=== PATIENT | female | born 1955 | race Caucasian/White ===

== ENCOUNTER 2021-10-08 09:58 | Outpatient (REF) | payer MEDICARE, SELFPAY ==
[2021-10-08 11:31] LABS: Hematocrit 43.8 % (37.0-47.0); Hemoglobin 14.6 g/dl (12.0-16.0); Mean Corpuscular HGB Conc 33.3 g/dl (31.0-35.0); Mean Corpuscular Hemoglobin 31.3 pg (27.0-33.0); Platelet Count 237 X10*3/uL (160-400); Red Blood Count 4.66 X10*6/uL (4.20-5.50); Red Cell Distribution Width 11.9 % (11.0-16.0)
[2021-10-08 11:55] LABS: Vitamin D 25-OH Total 34.9 ng/mL (>30)
[2021-10-08 12:05] LABS: Alanine Aminotransferase 12 U/L (0-31); Albumin Level 3.9 g/dL (3.5-5.0); Alkaline Phosphatase 92 U/L (39-117); Anion Gap 15 (12-20); Aspartate Amino Transferase 16 U/L (5-31); Bilirubin Total 1.2 mg/dL (0.0-1.0); Blood Urea Nitrogen 16 mg/dL (9-16); Calcium 9.2 mg/dL (8.4-10.2); Carbon Dioxide 23 mmol/L (22-29); Chloride 102 mmol/L (96-108); Cholesterol 209 mg/dL; Estimated Glomerular Filt Rate > 60; Glucose Fasting 101 mg/dL (60-99); HDL Cholesterol 59 mg/dL; LDL Cholesterol Calculated 116 mg/dl; Potassium 4.8 mmol/L (3.3-5.1); Sodium 135 mmol/L (135-145); Total Protein 7.3 g/dL (6.5-8.0); Triglycerides 174 mg/dL
== END 2021-10-08 09:59 | disposition home or self-care (01) ==
LOC: HO.HMGCLDS 09:58
PROVIDERS: Visit Provider Internal Medicine
DX: E78.5 Hyperlipidemia, unspecified (principal); I10 Essential (primary) hypertension
CPT/HCPCS: 36415; 80053; 80061; 82306; 84443; 85027

== ENCOUNTER 2022-11-26 10:04 | Outpatient (REF) | payer MEDICARE, SELFPAY ==
[2022-11-26 11:34] LABS: MANUAL DIFF FLAG NO
[2022-11-26 11:35] LABS: Basophils Absolute Auto 0.1 X10*3/uL (0.0-0.2); Basophils Percent Auto 0.9 % (0-2); Eosinophils Absolute Auto 0.2 X10*3/uL (0.0-0.4); Eosinophils Percent Auto 2.4 % (0-4); Hematocrit 41.7 % (37.0-47.0); Hemoglobin 14.1 g/dl (12.0-16.0); Imm Gran Abs Auto 0.03 X10*3/uL (0.00-0.03); Imm Gran Pct Auto 0.5 % (0.0-0.4); Lymphocytes Percent Auto 32.1 % (20-40); Mean Corpuscular HGB Conc 33.8 g/dl (31.0-35.0); Mean Corpuscular Hemoglobin 31.8 pg (27.0-33.0); Mean Corpuscular Volume 93.9 fL (80.0-98.0); Mean Platelet Volume 11.3 fL (9.4-12.3); Monocytes Absolute Auto 0.4 X10*3/uL (0.1-1.2); Monocytes Percent Auto 6.1 % (2-11); Neutrophils Absolute Auto 3.7 x10*3/uL (2.0-8.3); Platelet Count 275 X10*3/uL (160-400); Red Blood Count 4.44 X10*6/uL (4.20-5.50); Red Cell Distribution Width 11.9 % (11.0-16.0); White Blood Count 6.4 X10*3/uL (4.8-10.8)
[2022-11-26 12:17] LABS: Alanine Aminotransferase 14 U/L (0-31); Albumin Level 4.1 g/dL (3.5-5.0); Alkaline Phosphatase 82 U/L (39-117); Anion Gap 12 (12-20); Aspartate Amino Transferase 19 U/L (5-31); Bilirubin Total 1.5 mg/dL (0.0-1.0); Blood Urea Nitrogen 14 mg/dL (9-16); Calcium 9.5 mg/dL (8.4-10.2); Carbon Dioxide 25 mmol/L (22-29); Chloride 103 mmol/L (96-108); Cholesterol 210 mg/dL; Estimated Glomerular Filt Rate 54; Glucose Fasting 104 mg/dL (60-99); HDL Cholesterol 61 mg/dL; LDL Cholesterol Calculated 121 mg/dl; Potassium 4.1 mmol/L (3.3-5.1); Sodium 136 mmol/L (135-145); Total Protein 7.4 g/dL (6.5-8.0); Triglycerides 143 mg/dL
[2022-11-26 12:33] LABS: TSH reflex Free T4 3.11 uIU/mL (0.32-4.0)
== END 2022-11-26 10:05 | disposition home or self-care (01) ==
LOC: HO.HMGCLDS 10:04
PROVIDERS: PCP Internal Medicine; Visit Provider Internal Medicine
DX: Z00.00 Encounter for general adult medical examination without abnormal findings (principal); I10 Essential (primary) hypertension; E78.5 Hyperlipidemia, unspecified
CPT/HCPCS: 36415; 80053; 80061; 83735; 84443; 85025

== ENCOUNTER 2023-01-18 10:23 | Outpatient (AMB) | payer MEDICARE, SELFPAY ==
--- NOTE | 2023-01-18 10:25 | A.OFFVIS_ITS ---
Intake Vital Signs 01/18/23 10:26 Height 5 ft 6.5 in Weight 198 lb BMI 31.5 BP 136/80 Blood Pressure Location Lt brachial Position Sitting Pulse 63 Pulse Source Pulse Oximeter Pulse Oximetry (%) 98 Oxygen Delivery Method Room Air Intake Visit Reasons: Hypertension Allergies latex Allergy (Mild, Verified 01/18/23 10:26) Rash sertraline [Zoloft] Allergy (Unknown, Verified 01/18/23 10:26) could not move Medication List - Last Reconciled 01/18/23 by Katalina Barclay MD conjugated estrogens (Premarin) 0.625 mg PO DAILY hydrochlorothiazide 12.5 mg PO DAILY irbesartan 150 mg PO DAILY levothyroxine 75 mcg PO QAM medroxyprogesterone (Provera) 2.5 mg PO DAILY metoprolol succinate ER 50 mg PO DAILY HPI Hypertension HPI Details Pt presents for f/u HTN and hypothyroid, stable on meds. Patient reports episodes of her equilibrium feeling of on and off for few years. Patient denies any weakness or numbness in extremities change in vision. [facility] Medical History Annual physical exam Colonoscopy refused Cyst, breast HTN (hypertension) Hx of screening mammography Hyperlipidemia IBS (irritable bowel syndrome) Normal pelvic exam Surgical History Hx of cholecystectomy Family History Father Substance use disorder Mother Mental health disorder Substance use disorder Social History Housing: House Patient Tobacco Use Status: Never used Tobacco Current occupational status: retired Cognitive needs: No Hearing needs: No Vision needs: Yes Review of Systems Const All systems reviewed & are unremarkable except as noted in HPI and below Reports no additional complaints Eyes Reports no additional complaints ENT Reports no additional complaints Card Reports no additional complaints Resp Reports no additional complaints GI Reports no additional complaints Physical Exam Vital Signs: Last Vital Signs Pulse 63 01/18/23 10:26 BP 136/80 01/18/23 10:26 Pulse Ox 98 01/18/23 10:26 Oxygen Delivery Method Room Air 01/18/23 10:26 BMI result Body Mass Index 31.5 Const General: no acute distress HEENT Head: Yes normal to inspection Ears: hearing grossly normal bilaterally General nose exam: Normal external nose present Eyes General: appearance normal, both eyes and all related structures Visual Bo: normal visual bo by confrontation Neck Neck: Yes no lymphadenopathy and Yes supple Resp Effort & Inspection: normal respiratory effort Auscultation: clear to auscultation bilaterally Cardio Rhythm: regular rhythm Heart sounds: S1 normal heart sound present and S2 normal heart sound present GI Inspection: Yes normal to inspection Palpation (GI): Soft to palpation Neuro General: CN's II-XI intact bilaterally Gait exam (Neuro): Normal gait present Motor exam (neuro): 5/5 motor strength present throughout Romberg Test: Negative Assessment & Plan Assessment & Plan (1) Hx of screening mammography: Comment: 06/09, 05/2022 Code(s): Z92.89 - Personal history of other medical treatment (2) Colonoscopy refused: Comment: 10/09, negatove Cologuard 2021 Code(s): Z53.20 - Procedure and treatment not carried out because of patient's decision for unspecified reasons (3) Hyperlipidemia: Code(s): E78.5 - Hyperlipidemia, unspecified Plan: Continue low-cholesterol diet (4) HTN (hypertension): Code(s): I10 - Essential (primary) hypertension Plan: Continue current medications, return in 6 months Orders: Orders CA echo transthoracic complete Today R01.1 - Cardiac murmur, unspecified Coding Level of Care Code Est Pt Level 4 (62907) Diagnoses Hx of screening mammography Z92.89 Colonoscopy refused Z53.20 Hyperlipidemia E78.5 HTN (hypertension) I10
[2023-01-18 10:26] VITALS: BP 136/80; PULSE 63; O2SAT 98; BMI 31.5
== END 2023-01-18 11:40 | disposition home or self-care (01) ==
LOC: HO.HMGC 10:23
PROVIDERS: PCP Internal Medicine; Visit Provider Internal Medicine
DX: Z92.89 Personal history of other medical treatment (principal); Z53.20 Procedure and treatment not carried out because of patient's decision for unspecified reasons; E78.5 Hyperlipidemia, unspecified; I10 Essential (primary) hypertension
CPT/HCPCS: 99214

== ENCOUNTER 2023-07-19 08:20 | Outpatient (AMB) | payer MEDICARE, SELFPAY ==
[2023-07-19 08:25] VITALS: BP 114/66; PULSE 61; O2SAT 97; BMI 33.1
--- NOTE | 2023-07-19 08:25 | AM.OFFVISMDC ---
Intake Vital Signs 07/19/23 08:25 Height 5 ft 6.5 in Weight 208 lb BMI 33.1 BP 114/66 Blood Pressure Location Lt brachial Position Sitting Pulse 61 Pulse Source Pulse Oximeter Pulse Oximetry (%) 97 Oxygen Delivery Method Room Air Intake Visit Reasons: [facility] G0439 Allergies latex Allergy (Mild, Verified 07/19/23 08:46) Rash sertraline [Zoloft] Allergy (Unknown, Verified 07/19/23 08:46) could not move Medication List - Last Reconciled 07/19/23 by Katalina Barclay MD conjugated estrogens (Premarin) 0.625 mg PO DAILY hydrochlorothiazide 12.5 mg PO DAILY irbesartan 150 mg PO DAILY levothyroxine 75 mcg PO QAM medroxyprogesterone (Provera) 2.5 mg PO DAILY metoprolol succinate ER 50 mg PO DAILY HPI [facility] G0439 HPI Details Initiated the conversation about Advanced Directives. Advanced Directives help? patients prepare for current and future decisions about their medical treatment? and place of care. Discussed with patient that it is a process where a patients? current condition and prognosis are reviewed, their wishes for information? regarding their illness are elicited, and likely medical dilemmas are presented? and options discussed. The form can be amended as needed, reviewed yearly and? make changes as needed IPPE/AWV ? year old presents? for her ? Annual? Wellness Visit, initial visit.? Medical / Social History Reviewed? Past Medical History ?Yes? . ? [place]? of Care / Care Team list updated ?Yes . ? Surgical/Hospitalization? History ?Yes . ? Current Medications? (including OTC and supplements) ?Yes . ? Family History ?Yes? . ? Tobacco? Control form ?Yes . ? AUDIT-C (Alcohol use) form? ?Yes . ? Illicit drug use in Social? History ?Yes . ? Current diagnosis of? depression? ?No ? Appropriate PHQ2/PHQ9? completed ?Yes . ? Data entered by ?Medical? [employer] and reviewed by provider ? Fall Risk ? Fall? History? Have you had any falls with? injury in the past year? ?No . ? Have you had two or more? falls in the past year? ?No . ? Fall Risk Assessment: ?No? falls in the past year . ? HRA filled out by? the patient, reviewed by Provider and scanned. ? IPPE/AWV ? Balance? Romberg? ?Yes . ? Tandem? walk ?Yes . ? Walk and? Turn ?Yes . ? Rise from? sit to stand ?Yes . ?Vision? Corrective? lens ?Yes ? Vision? screen ? Up-to-date, has an appointment [] for vision? screening and glaucoma screening ?Hearing? Whisper? test ?pass .? Initiated the conversation about Advanced Directives. Advanced Directives help? patients prepare for current and future decisions about their medical treatment? and place of care. Discussed with patient that it is a process where a patients? current condition and prognosis are reviewed, their wishes for information? regarding their illness are elicited, and likely medical dilemmas are presented? and options discussed. The form can be amended as needed, reviewed yearly and? make changes as needed Written? Plan?Completed. See Patient? Documents. [facility] Medical History (Updated 07/19/23 @ 09:45 by Katalina Barclay MD) Normal pelvic exam Hx of screening mammography Colonoscopy refused Annual physical exam Hyperlipidemia HTN (hypertension) IBS (irritable bowel syndrome) Cyst, breast Surgical History Hx of cholecystectomy Family History Father Substance use disorder Mother Mental health disorder Substance use disorder Social History Housing: House Patient Tobacco Use Status: Never used Tobacco Current occupational status: retired Cognitive needs: No Hearing needs: No Vision needs: Yes Questionnaire Medicare Wellness Checkup [age] What gender do you identify with?: female During the past 4 weeks, how much have you been bothered by emotional problems such as feeling anxious, depressed, irritable, sad or downhearted, and blue?: not at all During the past 4 weeks, has your physical & emotional health limited your social activities with family, friends, neighbors, or groups?: not at all During the past 4 weeks, how much bodily pain have you generally had?: very mild pain During the past 4 weeks, was someone available to help you if you needed & wanted help?: yes, as much as I wanted During the past 4 weeks, what was the hardest physical activity you could do for at least 2 minutes?: moderate Can you get to places out of walking distance without help? (For eg., can you travel alone on buses, taxis or drive your car?): Yes Can you go shopping for groceries or clothes without someone's help?: Yes Can you prepare your own meals?: Yes Can you do your housework without help?: Yes Because of any health problems, do you need the help of another person with your personal care needs such as eating, bathing, dressing or getting around the house?: No Can you handle your own money without help?: Yes During the past 4 weeks, how would you rate your health in general?: very good During the past 4 weeks how have things been going for you?: very well; could hardly better Are you having difficulties driving your car?: no Do you always fasten your seat belt when you are in a car?: yes, usually During past 4 weeks, have you been bothered by the following: never: Falling or dizzy when standing up, Sexual problems?, Trouble eating well?, Teeth or denture problems? and Problems using the telephone? and seldom: Tiredness or fatigue? Have you fallen 2 or more times in the past year?: No Are you afraid of falling?: No Are you a smoker?: no During the past 4 weeks, how many drinks of wine, beer, or other alcoholic beverages did you have?: 1 drink or less per week Do you exercise for about 20 minutes 3 or more times a week?: no, I usually do not exercise this much Have you been given information to help with the following?: no: Hazards in your house that might hurt you? and no: Keeping track of your medications? How often do you have trouble taking medicines the way you have been told to take them?: I always take medicine as prescribed How confident are you that you can control & manage most of your health problems?: very confident What is your race?: White Mini Mental State Exam (MMSE) Orientation What is the (year) (season) (date) (day) (month)?: year, season, date, day and month Where are we (state) (county) (town or city) (hospital) (floor)?: state, county, town or city, hospital/clinic and floor Registration Name of 3 unrelated objects clearly and slowly, then ask patient to repeat all 3 of them. (1st repeat determines score. Make sure they can repeat all three): object 1, object 2 and object 3 Attention & Calculation (CHOOSE ONE) Spell WORLD backwards (DLROW): 5 letters Recall Ask patient to repeat the 3 items from question #3.: object 1, object 2 and object 3 Language Show patient a wristwatch & ask what it is. Repeat for pencil.: watch and pencil Ask the patient to repeat the phrase 'No ifs, ands, or buts' after you.: correct Ask the patient to 'take a piece of paper with their right hand' 'fold paper in half' 'place paper on floor': take paper in right hand, fold paper in half and place paper on floor Print the sentence 'CLOSE YOUR EYES' on a piece. If patient actually closes eyes then score.: followed written direction Give patient a blank piece of paper & ask to write a sentence. Score if it contains a noun & verb.: sentence contains subject and verb Score Score: 29 Activity of Daily Living Bathing - sponge bath, tub bath or shower: receives no assistance (gets in/out by self, if usual bathing means Dressing - getting clothes from closets & drawers, including inner/outer garments & fasteners.: gets clothes & gets completely dressed without help Toileting - going to the 'toilet room' for urine/bowel elimination & cleaning self/arranging clothes: goes to toilet room, cleans self, arranges clothes without help Transfer: moves in & out of bed and chair without help (may use support object) Continence: controls urination/bowel movements completely by self Feeding: feeds self without help Total Score: 0 Information obtained from: patient Using telephone: independent Traveling: independent Shopping: independent Preparing meals: independent Housework: independent Taking medicine: independent Managing money: independent Review of Systems Const All systems reviewed & are unremarkable except as noted in HPI and below Reports no additional complaints Eyes Reports no additional complaints ENT Reports no additional complaints Card Reports no additional complaints Resp Reports no additional complaints GI Reports no additional complaints Reports no additional complaints Physical Exam Vital Signs: Last Vital Signs Pulse 61 07/19/23 08:25 BP 114/66 07/19/23 08:25 Pulse Ox 97 07/19/23 08:25 Oxygen Delivery Method Room Air 07/19/23 08:25 BMI result Body Mass Index 33.1 Const General: no acute distress HEENT Head: Yes normal to inspection Ears: hearing grossly normal bilaterally Neck Neck: Yes no lymphadenopathy and Yes supple Resp Effort & Inspection: normal respiratory effort Auscultation: clear to auscultation bilaterally Cardio Rhythm: regular rhythm Heart sounds: S1 normal heart sound present and S2 normal heart sound present GI Inspection: Yes normal to inspection Palpation (GI): Soft to palpation Percussion: Yes normal to percussion Auscultation: normal bowel sounds Extrem General: Yes no clubbing, cyanosis or edema Assessment & Plan Assessment & Plan (1) Annual physical exam: Code(s): Z00.00 - Encounter for general adult medical examination without abnormal findings Plan: WELL-BALANCED DIET REGULAR PHYSICAL ACTIVITY DISCUSSED WITH THE PATIENT. Patient was advised to taper down Premarin because of increased risk breast CA,DC and CVA. Patient tried to taper down the dose but developed difficulties with short-term memory. She follows up with [facility] for pelvic exam patient is up-to-date with a mammogram she had negative Cologuard in 2021. Patient declined DEXA (2) Hyperlipidemia: Code(s): E78.5 - Hyperlipidemia, unspecified Plan: Continue low-cholesterol diet (3) HTN (hypertension): Code(s): I10 - Essential (primary) hypertension Plan: Continue current medications (4) Heart murmur: Comment: nl ECHO 04/11 Code(s): R01.1 - Cardiac murmur, unspecified Plan: nl Echo Orders: Orders Comprehensive [place]. Panel Fast Today E78.5 - Hyperlipidemia, unspecified, I10 - Essential (primary) hypertension, Z00.00 - Encounter for general adult medical examination without abnormal findings TSH reflex Free T4 Today E78.5 - Hyperlipidemia, unspecified, I10 - Essential (primary) hypertension, Z00.00 - Encounter for general adult medical examination without abnormal findings Medications: Refilled levothyroxine 75 mcg PO QAM 90 tabs 3RF hydrochlorothiazide 12.5 mg PO DAILY 90 tabs 1RF irbesartan 150 mg PO DAILY 90 tabs 3RF metoprolol succinate ER 50 mg PO DAILY 90 tabs 3RF Coding Level of Care Code Medicare Subsequent (G0439) Diagnoses Annual physical exam Z00.00 Hyperlipidemia E78.5 HTN (hypertension) I10 Heart murmur R01.1 CPT Codes Advance Care Planning - Time spent: 1-15 minutes, not on file ([id number]) Advance Care Planning Advance Care Planning discussion: Exists, not on file Forms completed: Health Care Proxy Time spent: 1-15 minutes, not on file
== END 2023-07-19 09:48 | disposition home or self-care (01) ==
PROVIDERS: PCP Internal Medicine; Visit Provider Internal Medicine
DX: Z00.00 Encounter for general adult medical examination without abnormal findings (principal); E78.5 Hyperlipidemia, unspecified; I10 Essential (primary) hypertension; R01.1 Cardiac murmur, unspecified
CPT/HCPCS: 1124F; G0439

== ENCOUNTER 2023-07-19 09:29 | Outpatient (REF) | payer MEDICARE, SELFPAY ==
[2023-07-19 11:03] LABS: Alanine Aminotransferase 14 U/L (0-31); Albumin Level 3.8 g/dL (3.5-5.0); Alkaline Phosphatase 91 U/L (39-117); Anion Gap 10 (12-20); Aspartate Amino Transferase 18 U/L (5-31); Blood Urea Nitrogen 14 mg/dL (9-16); Calcium 9.2 mg/dL (8.4-10.2); Carbon Dioxide 26 mmol/L (22-29); Chloride 104 mmol/L (96-108); Estimated Glomerular Filt Rate 60; Glucose Fasting 100 mg/dL (60-99); Sodium 136 mmol/L (135-145); Total Protein 7.2 g/dL (6.5-8.0)
[2023-07-19 11:21] LABS: TSH reflex Free T4 3.17 uIU/mL (0.32-4.0)
== END 2023-07-19 09:30 | disposition home or self-care (01) ==
LOC: HO.HMGCLDS 09:29
PROVIDERS: PCP Internal Medicine; Visit Provider Internal Medicine
DX: Z00.00 Encounter for general adult medical examination without abnormal findings (principal); E78.5 Hyperlipidemia, unspecified; I10 Essential (primary) hypertension
CPT/HCPCS: 36415; 80053; 84443

== ENCOUNTER 2024-04-17 13:57 | Outpatient (AMB) | payer MEDICARE, SELFPAY ==
[2024-04-17 14:00] VITALS: BP 118/70; PULSE 67; O2SAT 97; BMI 34.2
--- NOTE | 2024-04-17 14:00 | A.OFFPC_ITS ---
Vital Signs 04/17/24 14:00 Height 5 ft 6.5 in Weight 215 lb BMI 34.2 BP 118/70 Blood Pressure Location Lt brachial Position Sitting Pulse 67 Pulse Source Pulse Oximeter Pulse Oximetry (%) 97 Oxygen Delivery Method Room Air Intake Visit Reasons: Pre op cataract surgery on 05/02/24 Dr. Menchaca Intake Note: Pt is here today for a pre op visit. Pt is having cataract surgery on 05/02/[address] Menchaca. Allergies latex Allergy (Mild, Verified 04/17/24 14:12) Rash sertraline [Zoloft] Allergy (Unknown, Verified 04/17/24 14:12) could not move Medication List - Last Reconciled 04/17/24 by Katalina Barclay MD conjugated estrogens (Premarin) 0.625 mg PO DAILY hydrochlorothiazide 12.5 mg PO DAILY irbesartan 150 mg PO DAILY levothyroxine 75 mcg PO QAM medroxyprogesterone (Provera) 2.5 mg PO DAILY metoprolol succinate ER 50 mg PO DAILY Tobacco use date assessed: 04/17/24 Fall risk assessment: No Falls in past year Last assessed Fall Risk: 04/17/24 Dental Screening Dental Screen Date: 04/17/24 Did you have a dental visit in the last 12 months?: Yes Did you have a dental problem in the last 6 months where you did not have access to dental care?: No Was dental information given to patient?: Patient has dentist HPI Pre op cataract surgery on 05/02/24 Dr. Menchaca HPI Details Pt presents for preop for cataract surgery. hypertension and hypothyroidism are controlled on current medications. [facility] Medical History Annual physical exam Colonoscopy refused Cyst, breast HTN (hypertension) Hx of screening mammography Hyperlipidemia IBS (irritable bowel syndrome) Normal pelvic exam Surgical History Hx of cholecystectomy Family History Father Substance use disorder Mother Mental health disorder Substance use disorder Social History Housing: House Patient Tobacco Use Status: Never used Tobacco service: No Current occupational status: retired Cognitive needs: No Hearing needs: No Vision needs: Yes Questionnaire PHQ-9 Over the last 2 weeks, how often have you been bothered by any of the following problems? 1. Little interest or pleasure in doing things: not at all 2. Feeling down, depressed, or hopeless: not at all 3. Trouble falling or staying asleep, or sleeping too much: not at all 4. Feeling tired or having little energy: not at all 5. Poor appetite or overeating: not at all 6. Feeling bad about yourself - or that you are a failure or have let yourself or your family down: not at all 7. Trouble concentrating on things, such as reading the newspaper or watching television: not at all 8. Moving or speaking so slowly that other people could have noticed. Or the opposite - being so fidgety or restless that you have been moving around a lot more than usual: not at all 9. Thoughts that you would be better off or of hurting yourself in some way: not at all Total score: 0 Depression Screening Interpretation: Negative Depression Screening Done: Yes 47342 - PHQ-9 Billing: Yes Source: Developed by Drs. Milan Wang, Jade Dodson, Edson Munson and colleagues, with an educational michael from [employer]. Thrive Questionnaire Date Thrive assessed: 04/17/24 I am a: Patient What is your living situation today?: I have a steady place to live Within the past 12 months, did the food you bought not last and you didn't have the money to get more?: Never true Within the past 12 months, did you worry whether your food would run out before you got money to buy more?: Never true Do you have trouble paying for medicines?: No Do you have trouble getting transportation to medical appointments?: No Do you have trouble paying your heating and electricity bill?: No Do you have trouble taking care of your child, family member or friend?: No Do you have trouble with day-to-day activities such as bathing, preparing meals, shopping, managing finances, etc.?: No Are you currently unemployed and looking for a job?: No Are you interested in more education?: No Please select the resources that you would like help with: None Currently or been in a relationship where the following occur: No concerns reported THRIVE Score: 0 AUDIT C Alcohol Use Questionnaire (AUDIT-C) 1. How often do you have a drink containing alcohol?: 2-4 times a month 2. How many drinks containing alcohol do you have on a typical day when you are drinking?: 1 or 2 3. How often do you have six or more drinks on one occasion?: Never Total Score: 2 MARY-7 AMB Questionnaire MARY-7 Date MARY - 7 assessed: 04/17/24 Feeling nervous, anxious, or on edge: 0 = Not at all Not being able to stop or control worryin = Not at all Worrying too much about different things: 0 = Not at all Trouble relaxin = Not at all Being so restless that it is hard to sit still: 0 = Not at all Becoming easily annoyed or irritable: 0 = Not at all Feeling afraid as if something awful might happen: 0 = Not at all Total MARY-7 score (0-4 normal; 5-9 mild; 10-14 moderate; 15-21 severe): 0 Source: Developed by Drs. Milan Wang, Jade Dodson, Edson Munson and colleagues, with an educational michael from [employer]. MARY-7 Assessment Billing MARY-7 Assessment Tool: MARY-7 Assessment 35977 Review of Systems Const All systems reviewed & are unremarkable except as noted in HPI and below ENT Reports no additional complaints Card Reports no additional complaints Resp Reports no additional complaints GI Reports no additional complaints Reports no additional complaints Physical exam (Primary Care) Vital Signs: Last Vital Signs Pulse 67 04/17/24 14:00 BP 118/70 04/17/24 14:00 Pulse Ox 97 04/17/24 14:00 Oxygen Delivery Method Room Air 04/17/24 14:00 BMI result Body Mass Index 34.2 Tobacco/Smoking Status: Tobacco use Status Tobacco use date assessed 04/17/24 04/17/24 14:14 Patient Tobacco Use Status Never used Tobacco 04/17/24 14:00 PHQ-9: PHQ-9 Score PHQ-9: Total score 0 04/17/24 14:14 Depression Screening Interpretation: Negative Thrive Assessment: Date of Thrive Assessment Date Thrive assessed 04/17/24 04/17/24 14:14 Currently or been in a relationship where the following occur: No concerns reported Const General: no acute distress HENMT Face and sinus: Yes normal facial exam Eyes General: appearance normal, both eyes and all related structures Neck Neck: Yes supple Resp Effort & Inspection: normal respiratory effort Auscultation: clear to auscultation bilaterally Cardio Rhythm: regular rhythm Heart sounds: S1 normal heart sound present and S2 normal heart sound present GI Inspection: Yes normal to inspection Palpation (GI): Soft to palpation Coding Level of Care Code Est Pt Level 4 (97866) Diagnoses HTN (hypertension) I10 Hyperlipidemia E78.5 Annual physical exam Z00.00 Vitamin D deficiency E55.9 Cataract H26.9 Additional Codes MARY-7 Assessment Billing - MARY-7 Assessment Tool: MARY-7 Assessment [id number] ([id number]) Assessment & Plan Assessment & Plan (1) HTN (hypertension): Code(s): I10 - Essential (primary) hypertension Category: Medical Plan: Continue current medications (2) Hyperlipidemia: Code(s): E78.5 - Hyperlipidemia, unspecified Category: Medical Plan: Continue low-cholesterol diet (3) Annual physical exam: Code(s): Z00.00 - Encounter for general adult medical examination without abnormal findings Category: Medical Plan: Return for physical in 3 months (4) Vitamin D deficiency: Code(s): E55.9 - Vitamin D deficiency, unspecified Category: Medical Plan: Continue vitamin-D supplement (5) Cataract: Code(s): H26.9 - Unspecified cataract Category: Medical Plan: Patient is medically cleared for cataract surgery Orders: Orders Lipid Panel 3 Months E55.9 - Vitamin D deficiency, unspecified, E78.5 - Hyperlipidemia, unspecified, I10 - Essential (primary) hypertension, Z00.00 - Encounter for general adult medical examination without abnormal findings TSH reflex Free T4 3 Months E55.9 - Vitamin D deficiency, unspecified, E78.5 - Hyperlipidemia, unspecified, I10 - Essential (primary) hypertension, Z00.00 - Encounter for general adult medical examination without abnormal findings Complete Blood Count Auto Diff 3 Months E55.9 - Vitamin D deficiency, unspecified, E78.5 - Hyperlipidemia, unspecified, I10 - Essential (primary) hypertension, Z00.00 - Encounter for general adult medical examination without abnormal findings Vitamin D 25-OH Total 3 Months E55.9 - Vitamin D deficiency, unspecified, E78.5 - Hyperlipidemia, unspecified, I10 - Essential (primary) hypertension, Z00.00 - Encounter for general adult medical examination without abnormal findings Comprehensive [place]. Panel Fast 3 Months E55.9 - Vitamin D deficiency, unspecified, E78.5 - Hyperlipidemia, unspecified, I10 - Essential (primary) hypertension, Z00.00 - Encounter for general adult medical examination without abnormal findings
== END 2024-04-17 14:40 | disposition home or self-care (01) ==
LOC: HO.HMCC 13:58
PROVIDERS: PCP Internal Medicine; Visit Provider Internal Medicine
DX: I10 Essential (primary) hypertension (principal); E78.5 Hyperlipidemia, unspecified; Z00.00 Encounter for general adult medical examination without abnormal findings; E55.9 Vitamin D deficiency, unspecified; H26.9 Unspecified cataract

== ENCOUNTER → 2024-04-17 13:57 | Outpatient (BNVA) | payer MEDICARE, SELFPAY | PROVIDERS: PCP Internal Medicine; Visit Provider Internal Medicine | DX: Z01.818 Encounter for other preprocedural examination (principal); H26.9 Unspecified cataract; I10 Essential (primary) hypertension; E78.5 Hyperlipidemia, unspecified; E55.9 Vitamin D deficiency, unspecified | CPT/HCPCS: 96127; 99212 ==

== ENCOUNTER 2024-09-13 09:16 | Outpatient (REF) | payer MEDICARE, SELFPAY ==
[2024-09-13 10:00] LABS: MANUAL DIFF FLAG NO
[2024-09-13 10:04] LABS: Basophils Absolute Auto 0.1 X10*3/uL (0.0-0.2); Eosinophils Absolute Auto 0.2 X10*3/uL (0.0-0.4); Eosinophils Percent Auto 3.1 % (0-4); Hematocrit 40.7 % (37.0-47.0); Hemoglobin 14.1 g/dl (12.0-16.0); Imm Gran Abs Auto 0.03 X10*3/uL (0.00-0.03); Imm Gran Pct Auto 0.4 % (0.0-0.4); Lymphocytes Absolute Auto 2.1 X10*3/uL (1.2-4.9); Lymphocytes Percent Auto 29.6 % (20-40); Mean Corpuscular HGB Conc 34.6 g/dl (31.0-35.0); Mean Corpuscular Volume 92.5 fL (80.0-98.0); Mean Platelet Volume 10.4 fL (9.4-12.3); Monocytes Absolute Auto 0.5 X10*3/uL (0.1-1.2); Monocytes Percent Auto 6.9 % (2-11); Neutrophils Absolute Auto 4.3 x10*3/uL (2.0-8.3); Platelet Count 279 X10*3/uL (160-400); Red Cell Distribution Width 11.9 % (11.0-16.0); White Blood Count 7.2 X10*3/uL (4.8-10.8)
[2024-09-13 11:09] LABS: TSH reflex Free T4 2.55 uIU/mL (0.32-4.0); Vitamin D 25-OH Total 46.6 ng/mL (>30)
[2024-09-13 11:12] LABS: Anion Gap 12 (12-20)
[2024-09-13 11:20] LABS: Alanine Aminotransferase 16 U/L (0-31); Albumin Level 3.7 g/dL (3.5-5.0); Alkaline Phosphatase 86 U/L (39-117); Aspartate Amino Transferase 23 U/L (5-31); Blood Urea Nitrogen 11 mg/dL (9-16); Calcium 8.7 mg/dL (8.4-10.2); Carbon Dioxide 22 mmol/L (22-29); Chloride 107 mmol/L (96-108); Cholesterol 183 mg/dL (<200); Estimated Glomerular Filt Rate > 60; Glucose Fasting 99 mg/dL (60-99); HDL Cholesterol 58 mg/dL (>40); LDL Cholesterol Calculated 97 mg/dL (<100); Sodium 137 mmol/L (135-145); Total Protein 7.1 g/dL (6.5-8.0); Triglycerides 143 mg/dL (<150)
== END 2024-09-13 09:17 | disposition home or self-care (01) ==
LOC: HO.HMGCLDS 09:16
PROVIDERS: PCP Internal Medicine; Visit Provider Internal Medicine
DX: Z00.00 Encounter for general adult medical examination without abnormal findings (principal); I10 Essential (primary) hypertension; E78.5 Hyperlipidemia, unspecified; E55.9 Vitamin D deficiency, unspecified
CPT/HCPCS: 36415; 80053; 80061; 82306; 84443; 85025; 96127; 99397

== ENCOUNTER 2024-09-13 09:30 | Outpatient (AMB) | payer MEDICARE, SELFPAY ==
[2024-09-13 09:34] VITALS: BP 122/70; PULSE 76; RESP 20; TEMP 36.6; O2SAT 98; BMI 34.5
--- NOTE | 2024-09-13 09:34 | A.OFFPC_ITS ---
Vital Signs 09/13/24 09:34 Height 5 ft 6.5 in Weight 217 lb BMI 34.5 BP 122/70 Blood Pressure Location Rt brachial Position Sitting Respiration 20 Pulse 76 Pulse Source Pulse Oximeter Temp 97.8 F Temp Source Oral Pulse Oximetry (%) 98 Oxygen Delivery Method Room Air Intake Visit Reasons: PE. Intake Note: Pt is here today for PE. Allergies latex Allergy (Mild, Verified 09/13/24 09:37) Rash sertraline [Zoloft] Allergy (Unknown, Verified 09/13/24 09:37) could not move Medication List - Last Reconciled 09/13/24 by Katalina Barclay MD conjugated estrogens (Premarin) 0.625 mg PO DAILY hydrochlorothiazide 12.5 mg PO DAILY irbesartan 150 mg PO DAILY levothyroxine 75 mcg PO QAM medroxyprogesterone (Provera) 2.5 mg PO DAILY metoprolol succinate ER 50 mg PO DAILY Tobacco use date assessed: 09/13/24 Fall risk assessment: No Falls in past year Last assessed Fall Risk: 09/13/24 Dental Screening Dental Screen Date: 09/13/24 Did you have a dental visit in the last 12 months?: Yes Did you have a dental problem in the last 6 months where you did not have access to dental care?: No Was dental information given to patient?: Patient has dentist [facility] Medical History Normal pelvic exam Hx of screening mammography Colonoscopy refused Annual physical exam Hyperlipidemia HTN (hypertension) IBS (irritable bowel syndrome) Cyst, breast Surgical History Hx of cataract surgery Hx of cholecystectomy Family History Father Substance use disorder Mother Mental health disorder Substance use disorder Social History Housing: House Patient Tobacco Use Status: Never used Tobacco e-Cigarette/Vaping Use: Never Used service: No Current occupational status: retired Cognitive needs: No Hearing needs: No Vision needs: Yes Questionnaire PHQ-9 Over the last 2 weeks, how often have you been bothered by any of the following problems? 1. Little interest or pleasure in doing things: not at all 2. Feeling down, depressed, or hopeless: not at all 3. Trouble falling or staying asleep, or sleeping too much: not at all 4. Feeling tired or having little energy: not at all 5. Poor appetite or overeating: not at all 6. Feeling bad about yourself - or that you are a failure or have let yourself or your family down: not at all 7. Trouble concentrating on things, such as reading the newspaper or watching te levision: not at all 8. Moving or speaking so slowly that other people could have noticed. Or the opposite - being so fidgety or restless that you have been moving around a lot more than usual: not at all 9. Thoughts that you would be better off or of hurting yourself in some way: not at all Total score: 0 Depression Screening Interpretation: Negative Depression Screening Done: Yes 33169 - PHQ-9 Billing: Yes Source: Developed by Drs. Milan Wang, Jade Dodson, Edson Munson and colleagues, with an educational michael from [employer]. Thrive Questionnaire Date Thrive assessed: 09/13/24 I am a: Patient What is your living situation today?: I have a steady place to live Within the past 12 months, did the food you bought not last and you didn't have the money to get more?: Never true Within the past 12 months, did you worry whether your food would run out before you got money to buy more?: Never true Do you have trouble paying for medicines?: No Do you have trouble getting transportation to medical appointments?: No Do you have trouble paying your heating and electricity bill?: No Do you have trouble taking care of your child, family member or friend?: No Do you have trouble with day-to-day activities such as bathing, preparing meals, shopping, managing finances, etc.?: No Are you currently unemployed and looking for a job?: No Are you interested in more education?: Yes Please select the resources that you would like help with: None Currently or been in a relationship where the following occur: No concerns reported THRIVE Score: 0 AUDIT C Alcohol Use Questionnaire (AUDIT-C) 1. How often do you have a drink containing alcohol?: Monthly or less 2. How many drinks containing alcohol do you have on a typical day when you are drinking?: 1 or 2 3. How often do you have six or more drinks on one occasion?: Never Total Score: 1 MARY-7 AMB Questionnaire AMRY-7 Date MARY - 7 assessed: 09/13/24 Feeling nervous, anxious, or on edge: 0 = Not at all Not being able to stop or control worryin = Not at all Worrying too much about different things: 0 = Not at all Trouble relaxin = Not at all Being so restless that it is hard to sit still: 0 = Not at all Becoming easily annoyed or irritable: 0 = Not at all Feeling afraid as if something awful might happen: 0 = Not at all Total MARY-7 score (0-4 normal; 5-9 mild; 10-14 moderate; 15-21 severe): 0 Source: Developed by Drs. Milan Wang, Jade Dodson, Edson Munson and colleagues, with an educational michael from [employer]. MARY-7 Assessment Billing MARY-7 Assessment Tool: MARY-7 Assessment 51132 Review of Systems Const All systems reviewed & are unremarkable except as noted in HPI and below Reports no additional complaints Eyes Reports no additional complaints ENT Reports no additional complaints Card Reports no additional complaints Resp Reports no additional complaints GI Reports no additional complaints Reports no additional complaints Physical exam (Primary Care) Vital Signs: Last Vital Signs Temp 97.8 F 09/13/24 09:34 Pulse 76 09/13/24 09:34 Resp 20 09/13/24 09:34 BP 122/70 09/13/24 09:34 Pulse Ox 98 09/13/24 09:34 Oxygen Delivery Method Room Air 09/13/24 09:34 BMI result Body Mass Index 34.5 Tobacco/Smoking Status: Tobacco use Status Tobacco use date assessed 09/13/24 09/13/24 09:43 Patient Tobacco Use Status Never used Tobacco 09/13/24 09:43 e-Cigarette/Vaping Use Never Used 09/13/24 09:43 PHQ-9: PHQ-9 Score PHQ-9: Total score 0 09/13/24 09:43 Depression Screening Interpretation: Negative Thrive Assessment: Date of Thrive Assessment Date Thrive assessed 09/13/24 09/13/24 09:43 Currently or been in a relationship where the following occur: No concerns reported Const General: no acute distress HENMT Head: Yes normal to inspection Ears: hearing grossly normal bilaterally General nose exam: Normal external nose present Face and sinus: Yes normal facial exam Mouth: Normal oral and palatal mucosa present Throat: Yes posterior oropharynx normal Eyes General: appearance normal, both eyes and all related structures Neck Neck: Yes no lymphadenopathy and Yes supple Resp Effort & Inspection: normal respiratory effort Auscultation: clear to auscultation bilaterally Cardio Rhythm: regular rhythm Heart sounds: S1 normal heart sound present and S2 normal heart sound present GI Inspection: Yes normal to inspection Palpation (GI): Soft to palpation Percussion: Yes normal to percussion Auscultation: normal bowel sounds Coding Level of Care Code Est Pt Prev Care >65y(74839) Diagnoses HTN (hypertension) I10 Hyperlipidemia E78.5 Vitamin D deficiency E55.9 Annual physical exam Z00.00 Colonoscopy refused Z53.20 Additional Codes MARY-7 Assessment Billing - MARY-7 Assessment Tool: MARY-7 Assessment 06071 ([id number]) PHQ-9 - 49226 - PHQ-9 Billing: Yes ([id number]) Assessment & Plan Assessment & Plan (1) HTN (hypertension): Code(s): I10 - Essential (primary) hypertension Category: Medical Plan: cont current meds (2) Hyperlipidemia: Code(s): E78.5 - Hyperlipidemia, unspecified Category: Medical Plan: Continue low-cholesterol diet. Patient had a fasting blood work today (3) Vitamin D deficiency: Code(s): E55.9 - Vitamin D deficiency, unspecified Category: Medical Plan: Continue vitamin-D/ (4) Annual physical exam: Code(s): Z00.00 - Encounter for general adult medical examination without abnormal findings Category: Medical Plan: Well-balanced diet regular physical activity discussed with the patient. She is up-to-date with the mammogram and Cologuard will be ordered (5) Colonoscopy refused: Comment: 10/09, negatove Cologuard 2021 Code(s): Z53.20 - Procedure and treatment not carried out because of patient's decision for unspecified reasons Category: Medical Plan: Cologuard will be sent Orders: Orders Complete Blood Count Auto Diff 1 Year E55.9 - Vitamin D deficiency, unspecified, E78.5 - Hyperlipidemia, unspecified, I10 - Essential (primary) hypertension Lipid Panel 1 Year E55.9 - Vitamin D deficiency, unspecified, E78.5 - Hyperlipidemia, unspecified, I10 - Essential (primary) hypertension TSH reflex Free T4 1 Year E55.9 - Vitamin D deficiency, unspecified, E78.5 - Hyperlipidemia, unspecified, I10 - Essential (primary) hypertension Comprehensive Dolph. Panel Fast 1 Year E55.9 - Vitamin D deficiency, unspecified, E78.5 - Hyperlipidemia, unspecified, I10 - Essential (primary) hypertension Vitamin D 25-OH Total 1 Year E55.9 - Vitamin D deficiency, unspecified, E78.5 - Hyperlipidemia, unspecified, I10 - Essential (primary) hypertension Referrals Cologuard Test Z12.11 - Encounter for screening for malignant neoplasm of colon, Z12.12 - Encounter for screening for malignant neoplasm of rectum Medications: New hydrochlorothiazide 1/2 tab daily 12.5 mg PO DAILY 90 tabs 3RF Refilled irbesartan 150 mg PO DAILY 90 tabs 3RF levothyroxine 75 mcg PO QAM 90 tabs 3RF metoprolol succinate ER 50 mg PO DAILY 90 tabs 3RF conjugated estrogens (Premarin) 0.625 mg PO DAILY 90 tabs 3RF
--- OUTSIDE RECORDS SUMMARY | 2024-09-13 11:24 | XMS_ITS | Patient Health Record ---
[facility] Address [address] [place] [address] Care Team Providers Care Land Law Examiner Name Role Phone Katalina Barclay MD Primary Care Provider Fanta Clarke Unavailable [phone] Allergies Allergen (clinical drug ingredient) Drug/Non Drug Allergy documented on EMR Reaction Allergy Type Onset Date Status Adhesive Unknown Allergy Active Results Component Value Reference Range Notes X ray : Foot, left 3V Reviewed date:03/21/2024 06:56:42 PM Interpretation:See Examination above Performing Lab: Notes/Report: See Examination above X ray : Foot, right 3V Reviewed date:03/21/2024 06:56:31 PM Interpretation:See Examination above Performing Lab: Notes/Report: See Examination above Reason For Referral No Information Medications Medication SIG (Take, Route, Frequency, Duration) Notes Start Date End Date Status Provera 2.5 MG 1 tablet with food Orally Once a day Active Premarin 0.625 MG 1 tablet Orally Once a day Active Physical Therapy . . . 2-3x/week for 3-4 weeks 03/21/2024 Not-Taking Irbesartan 150 MG 1 tablet Orally Once a day Active Levothyroxine Sodium 75 MCG 1 tablet in the morning on an empty stomach Orally Once a day Active Metoprolol Succinate ER 50 MG 1 tablet O rally Once a day Active hydroCHLOROthiazide 12.5 MG 1 tablet in the morning Orally Once a day Active Social History Tobacco Use: Social History Observation Description Date Details (start date - stop date) Former Smoker NA - NA Tobacco use other than smoking: Question Answer Notes Are you an other tobacco user? No Tobacco Control (Standard) Question Answer Notes Tobacco use: Former smoker Additional Findings: Tobacco non-user Ex-cigaret te smoker AUDIT-C (Standard) Question Answer Notes Did you have a drink contain ing alcohol in the past year? Yes How often did you have six o r more drinks on one occasion in the past year? Never (0 point) How many drinks did you have on a typical day when you were drinking in the past year? 1 or 2 drinks (0 point) How often did you have a dri nk containing alcohol in the past year? 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) Active confirmed Problem PlantarFlexion o f metatarsal of left foot (M21.6X2) Active confirmed Problem Localized, primary osteoarthritis of the ankle and/or foot (280666588) Arthritis of joint of lesser toe, left (M19.072) Active confirmed Problem Localized, primary osteoarthritis of the ankle and/or foot (039109548) Arthritis of joint of lesser toe, right (M19.071) Active confirmed Problem 295307940 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) Active confirmed Problem [id number] Gastrocnemius equinus of right lower extremity (M62.461) Active confirmed Vital Signs Blood pressure diastolic 70 mm Hg 05/29/2024 Height 5ft 7in in 05/29/2024 Blood pressure systolic 120 mm Hg 05/29/2024 Weight 215 lbs 05/29/2024 BMI 33.67 kg/m2 05/29/2024 Encounters Encounter Location Date Provider Diagnosis [facility] [place] [address] 03/21/2024 Fanta Black Pain in right toe(s) M79.674 ; Other hammer toe(s) (acquired), right foot M20.41 ; Arthritis of joint of lesser toe, right M19.071 ; Pain in left toe(s) M79.675 ; Other hammer toe(s) (acquired), left foot M20.42 ; Arthritis of joint of lesser toe, left M19.072 ; Subluxation of metatarsophalangeal joint of toe, initial encounter S93.149A ; Gastrocnemius equinus of right lower extremity M62.461 ; Gastrocnemius equinus of left lower extremity M62.462 ; Plantarflexion deformity of right foot M21.6X1 ; PlantarFlexion of metatarsal of left foot M21.6X2 ; Metatarsalgia of left foot M77.42 and Metatarsalgia of right foot M77.41 [facility] [address] 05/29/2024 Fnata Xavier Pain in right toe(s) M79.674 ; Metatarsalgia of left foot M77.42 ; Other hammer toe(s) (acquired), right foot M20.41 ; Arthritis of joint of lesser toe, right M19.071 ; Pain in left toe(s) M79.675 ; Other hammer toe(s) (acquired), left foot M20.42 ; Arthritis of joint of lesser toe, left M19.072 ; Subluxation of metatarsophalangeal joint of toe, initial encounter S93.149A ; Gastrocnemius equinus of right lower extremity M62.461 ; Gastrocnemius equinus of left lower extremity M62.462 ; Plantarflexion deformity of right foot M21.6X1 ; PlantarFlexion of metatarsal of left foot M21.6X2 and Metatarsalgia of right foot M77.[address] [facility] [address] 05/28/2024 Fanta Xavier [facility] [address] 05/28/2024 Fanta Xavier [address] [address] 05/29/2024 Fanta Xavier [facility] [address] 05/29/2024 Fanta Xavier Assessments Encounter Date Diagnosis (ICD Code) Assessment Notes Treatment Notes Treatment Clinical Notes Section Notes 03/21/2024 Other hammer toe(s) (acquired), right foot (ICD-10 - M20.41) 03/21/2024 Pain in right toe(s) (ICD-10 - M79.674) 05/29/2024 Pain in right toe(s) (ICD-10 - M79.674) 05/29/2024 Metatarsalgia of lef t foot (ICD-10 - M77.42) 03/21/2024 Arthritis of joint o f lesser toe, right (ICD-10 - M19.071) 05/29/2024 Other hammer toe(s) (acquired), right foot (ICD-10 - M20.41) 03/21/2024 Pain in left toe(s) (ICD-10 - M79.675) 05/29/2024 Arthritis of joint o f lesser toe, right (ICD-10 - M19.071) 03/21/2024 Other hammer toe(s) (acquired), left foot (ICD-10 - M20.42) 05/29/2024 Pain in left toe(s) (ICD-10 - M79.675) 05/29/2024 Other hammer toe(s) (acquired), left foot (ICD-10 - M20.42) 03/21/2024 Arthritis of joint o f lesser toe, left (ICD-10 - M19.072) 03/21/2024 Subluxation of metatarsophalangeal joint of toe, initial encounter (ICD-10 - S93.149A) 05/29/2024 Arthritis of joint o f lesser toe, left (ICD-10 - M19.072) 05/29/2024 Subluxation of metatarsophalangeal joint of toe, initial encounter (ICD-10 - S93.149A) 03/21/2024 Gastrocnemius equinu s of right lower extremity (ICD-10 - M62.461) 03/21/2024 Gastrocnemius equinu s of left lower extremity (ICD-10 - M62.462) 05/29/2024 Gastrocnemius equinu s of right lower extremity (ICD-10 - M62.461) 05/29/2024 Gastrocnemius equinu s of left lower extremity (ICD-10 - M62.462) 03/21/2024 Plantarflexion deformity of right foot (ICD-10 - M21.6X1) 03/21/2024 PlantarFlexion of metatarsal of left foot (ICD-10 - M21.6X2) 05/29/2024 Plantarflexion deformity of right foot (ICD-10 - M21.6X1) 05/29/2024 PlantarFlexion of metatarsal of left foot (ICD-10 - M21.6X2) 03/21/2024 Metatarsalgia of lef t foot (ICD-10 - M77.42) 03/21/2024 Metatarsalgia of rig ht foot (ICD-10 - M77.41) 05/29/2024 Metatarsalgia of rig ht foot (ICD-10 - M77.41) Plan Of Treatment No Information Insurance Providers Payer Name Payer Address Payer Phone Subscriber Number Group Number Insured Name Patient Relationship to Insured Coverage Start Date Coverage End Date [facility] [address] [place] [address] [id number] Liliya Padilla Self - patient is the insured Medical (General) History Medical History History ICD Code Cancer Crohns disease Diverticulosis Gall bladder problems High Blood Pressure Scarlet fever sinusitis thyroid Chicken pox Surgical History Surgery Date(Month/Year) Gall bladder removal 1999 appendectomy 1966 eye surgery - left 05/02/24
--- OUTSIDE RECORDS SUMMARY | 2024-09-13 11:24 | XMS_ITS ---
Author Organization [facility] Address [address] [place] [address] [place] [address] Care Team Providers Care Safety Clothing And Equipment Developer Name Role Phone Ning ODELL, Katalina Primary Care Provider Fanta Clarke [phone] REASON FOR VISIT Seen Sooner Encounters Encounter Location Date [facility] [place] [address] 06/22/2024 Fanta Xavier Plan Of Treatment No Information Progress Notes * Joanne SUAZOB:1955 ( 68 yo F)Acc No.[id number]:06/22/2024 Progress Note Patient:?Liliya SUAZO Provider:Nani Xavier DPM :1955???Age:68 Y???Sex:Female D ate:06/22/2024 Address[address] [place] Pcp:Katalina Barclay MD Subjective: * Chief Complaints: * ???1. Seen Sooner. * Medical History:? Objective: * Vitals:? Assessment: Plan: * Treatment: * Images: * The named appointment provid er may or may not be the originator of this progress note, and it is not deemed complete until electronically signed by the appointment provider. Sign off status: Pending * Provider:Nani Xavier DPM Date:?2024 Generated for Idrisi zack/Fajohang/eTransmitting on:?09/13/2024 11:24 AM EDT
--- OUTSIDE RECORDS SUMMARY | 2024-09-13 11:24 | XMS_ITS ---
Author Organization [facility] Address [address] [place] [address] Care Team Providers Care National Coverage Specialist Name Role Phone Katalina Barclay MD Primary Care Provider Fanta Clarke [phone] Encounters Encounter Location Date Provider Diagnosis [facility] [address] [place] [address] 05/29/2024 Fanta Xavier Plan Of Treatment No Information Progress Notes * Joanne SUAZOB:1955 ( 68 yo F)Acc No.[id number]:05/29/2024 Patient:?Liliya SUAZO :1955???Age:68 Y???Sex:Female Address:[address] [place] [address] * true * Date:? Generated for Idrisi zack/Keerthi/eTransmitting on:?09/13/2024 11:24 AM EDT
--- OUTSIDE RECORDS SUMMARY | 2024-09-13 11:24 | XMS_ITS ---
Author Organization [facility] Address [address] [facility] [place] [address] Care Team Providers Care Sweater Designer Name Role Phone Katalina Barclay MD Primary Care Provider Fanta Clarke [phone] REASON FOR VISIT buy D redi orthotics Encounters En[facility] [place] [address] 05/29/2024 Fanta Xavier Plan Of Treatment No Information Progress Notes * Joanne SUAZOB:1955 ( 68 yo F)Acc No.[id number]:05/29/2024 Patient:?Liliya SUAZO :1955???Age:68 Y???Sex:Female Address:[address] [place] [address] * true * Date:? Generated for Printi ng/Fajohang/eTransmitting on:?09/13/2024 11:24 AM EDT
== END 2024-09-13 10:13 | disposition home or self-care (01) ==
LOC: HO.HMCC 09:31
PROVIDERS: PCP Internal Medicine; Visit Provider Internal Medicine
DX: I10 Essential (primary) hypertension (principal); E78.5 Hyperlipidemia, unspecified; E55.9 Vitamin D deficiency, unspecified; Z00.00 Encounter for general adult medical examination without abnormal findings; Z53.20 Procedure and treatment not carried out because of patient's decision for unspecified reasons